=== PATIENT | male | born 1965 | race American Indian/Alaskan Native ===

== ENCOUNTER 2021-02-28 11:46 | Outpatient (CLI) | payer OTHER ==
--- NOTE | 2021-02-28 13:13 | XRay Report ---
Left knee 3 views INDICATION: Pain FINDINGS: Alignment appears normal. There is patellofemoral degenerative change. Joint space narrowin g most significant in the patellofemoral joint. No acute fracture or dislocation. Signer Name: Justus Paul MD Signed: 02/28/2021 1:09 PM Workstation Name: [facility]
--- NOTE | 2021-02-28 13:14 | XRay Report ---
Left ankle 3 views INDICATION: Pain FINDINGS: Alignment appears normal. Talar dome appears intact. Degenerative changes seen at the tibio talar joint posteriorly. No displaced fracture. Signer Name: Justus Paul MD Signed: 02/28/2021 1:09 PM Workstation Name: [id number]
== END 2021-02-28 11:47 | disposition home or self-care (01) ==
LOC: XRAY 11:46
PROVIDERS: ATTEND Internal Medicine
DX: M19.072 Primary osteoarthritis, left ankle and foot (principal); M17.12 Unilateral primary osteoarthritis, left knee